=== PATIENT | female | born 1960 | race Caucasian/White ===

== ENCOUNTER 2020-11-12 08:09 | Emergency (ER) | payer MEDICAID ==
[~2020-11-12] VITALS: Ht 157.5 cm; Wt 150.0 kg
--- NOTE | 2020-11-12 08:13 | NUR ---
[facility] AT BEDSIDE FOR EVALUATION.
--- NOTE | 2020-11-12 08:24 | NUR ---
BIB EMS WITH CHIEF C/O SOB X1 DAY. PER EMS PATIENT FROM [place], ARRIVED IN [place] YESTERDAY. PATIENT ALSO REPORTS BILATERAL ANKLE SWELLING X2 MONTHS. 20 GAUGE RIGHT HAND STARTED EN ROUTE, VSS EN ROUTE, NO OTHER INTERVENTIONS. UPON ASSESSMENT PATIENT A&O X4, BREATHING SHALLOW BUT UNLABORED, RA SATURATION 96%, OTHER VSS. PATIENT DENIES FEVER, COUGH, N/V/D. NO OTHER COMPLAINTS AT THIS TIME. CONNECTED TO MONITOR, VSS, CALL LIGHT WITHIN REACH.
[2020-11-12] MEDS ORDERED: ALBUTEROL/IPRATROPIUM 2.5MG/0.5MG, 3 ML ONE (08:28)
[2020-11-12] MEDS ORDERED: ALBUTEROL/IPRATROPIUM 2.5MG/0.5MG, 3 ML NEB ONE (08:30)
--- NOTE | 2020-11-12 08:44 | NUR ---
COVID SWAB COLLECTED AND WALKED TO LAB, PATIENT FINISHED BREATHING TREATMENT TOLERATED WELL, VSS.
[2020-11-12 08:52] LABS: ALANINE AMINOTRANSFERASE 45 U/L (12-78); ALBUMIN 3.1 g/dL (3.4-5.0); ANION GAP 7 mmol/L (5-15); BASOPHILS % (AUTO) 1 % (0-1); CALCIUM 8.1 mg/dL (8.5-10.1); CHLORIDE 107 mmol/L (98-107); CREATININE 0.74 mg/dL (0.55-1.02); EOSINOPHILS % (AUTO) 1 % (1-7); LYMPHOCYTES % (AUTO) 26 % (22-44); MEAN CORPUSCULAR HEMOGLOBIN 28.3 pg (27.0-34.8); MEAN PLATELET VOLUME 8.4 fL (7.4-10.4); MONOCYTES % (AUTO) 5 % (2-9); NEUTROPHILS % (AUTO) 67 % (42-75); PLATELET COUNT 268 x10^3/uL (130-400); RED BLOOD COUNT 4.89 x10^6/uL (3.82-5.3); RED CELL DISTRIBUTION WIDTH 14.2 % (9.6-15.2)
[2020-11-12 08:57] LABS: ALKALINE PHOSPHATASE 99 U/L (45-117); BILIRUBIN,TOTAL 0.3 mg/dL (0.2-1.0); TOTAL PROTEIN 7.3 g/dL (6.4-8.2); TROPONIN I < 0.015 ng/mL (0.000-0.045)
--- NOTE | 2020-11-12 09:32 | NUR ---
PATIENT AMBULATED TO BATHROOM AND BACK TO [facility] WITH STEADY GAIT. CONNECTED TO MONITOR, VSS, CALL LIGHT WITHIN REACH. PATIENT UP FOR RECHECK.
[2020-11-12 09:35] VITALS: BP 179/89
--- NOTE | 2020-11-12 09:43 | NUR ---
[facility]MD AT BEDSIDE TO DISCUSS POC.
== END 2020-11-12 10:01 | disposition home or self-care (01) ==
LOC: ED 09:27
DX: J44.1 Chronic obstructive pulmonary disease with (acute) exacerbation (principal); R06.00 Dyspnea, unspecified; Z20.822 Contact with and (suspected) exposure to COVID-19; I25.2 Old myocardial infarction; E66.9 Obesity, unspecified; Z68.44 Body mass index [BMI] 60.0-69.9, adult; Z90.49 Acquired absence of other specified parts of digestive tract; Z88.2 Allergy status to sulfonamides
CPT/HCPCS: 36415; 71045; 80053; 83880; 84484; 85025; 87635; 93005; 94640; 99285; J7512; U0003; U0005